=== PATIENT | male | born 1995 | race Caucasian/White ===

== ENCOUNTER → 2017-08-17 | Outpatient (REF) ==
--- NOTE | 2017-08-17 10:43 | RADIOLOGY IMAGING REPORT ---
FACILITY: [facility] PATIENT NAME: Aries Schmitz : 1995 MR: [id number] V: [id number] EXAM DATE: ORDERING PHYSICIAN: ANA LAURA TSONER TECHNOLOGIST: [place] [facility] [place] Schmit[place] : 1995 Visit/Account:[id number] Date of Sevice: 08/17/2017 CHEST SINGLE AP HISTORY: Work physical. COMPARISON: None FINDINGS: Cardiomediastinal contours: The heart size is normal. Lungs and pleura: There is no finding of an infiltrate, lymphadenopathy or pleural effusion. Bones/soft tissues: There are no findings of a fracture. IMPRESSION: Normal chest x-ray without findings of acute disease. Report Dictated By: Colton Romero MD at 08/17/2017 10:39 AM Report E-Signed By: Colton Romero MD at 08/17/2017 10:40 AM WSN:[id number]
== END ==
LOC: RAD 09:37
PROVIDERS: ATTEND Physician Assistant Medical
DX: Z02.9 Encounter for administrative examinations, unspecified (principal)
CPT/HCPCS: 71045